=== PATIENT | female | born 1975 | race Caucasian/White ===

== ENCOUNTER 2021-10-14 16:33 | Observation (INO) | payer BC, SELFPAY ==
[2021-10-05 10:54] VITALS: BMI 54.5
--- NOTE | 2021-10-05 11:14 | PC.NURSE ---
Report to the Outpatient Waiting Room, entrance under the green pavilion located off [facility], at time 1000 on date 10/12/21. OR Time: 1200. - You and your visitor will be asked a series of questions to screen for COVID 19 for your protection. - Only one visitor is allowed at this time. - The patient visitor is requested to leave or wait in car when not with patient. - A mask is required within the hospital. Patients may have clear liquids (water, carbonated beverages, clear teas, apple juice) until 3 hours prior to surgery with a maximum of 20 ounces. - No food from midnight until time of surgery Take the following medications with a SIP of water the morning of surgery: LEXAPRO, SYNTHROID Medications to discontinue per physician: N/A Date to take last dose: N/A Please no make-up, nail moldovan, hairspray, perfume, deodorant, or body powder the day of surgery. No jewelry (including any body piercings) or valuables the day of surgery, leave them at home. Please take a shower or bath the night before, or the morning of, surgery with an antibacterial soap. Wear comfortable, loose fitting clothing. - Jewelry must be removed prior to entering the operating room. Rings and piercings that are not removed may be cut off. - The hospital will not accept responsibility for valuables. - Please leave all valuables, including medications, at home the day of surgery. If you are going home after surgery, a licensed show horse driver must drive you home. - NO public transportation without another adult. - We recommend that an adult stay with you for 24 hours following discharge. - We also recommend that you do not drive, make important decision, drink alcoholic beverages, or take any drugs that were not prescribed by your health care provider for at least 24 hours after your discharge time. Follow any additional instructions given to you from your surgeon. If you or anyone in your household have experienced Covid symptoms in the past week, please notify your surgeon or the nurse liaison at the phone number below for possible testing. Telephone instructions given to PT - BONG BEASLEY and asked if any additional questions and then verbalized understanding. Patient advised to call surgeon office or pre surgery nurse liaison [phone] if any additional questions.
[2021-10-12] VITALS (18 sets, daily range): BP systolic 110–151; BP diastolic 55–113; PULSE 99–120; RESP 10–22; TEMP 36.1–37; O2SAT 95–100
[2021-10-12] MEDS: LACTATED RINGERS 1,000 ML 30 ML IV CONT ×3 (06:50→12:50)
[2021-10-12] MEDS: SCOPOLAMINE 1.5 MG PATCH TRANSDERM (06:58)
--- NOTE | 2021-10-12 06:59 | WPDANESEPPF ---
Anes - Initial Pre Proc Eval Procedure: Operation Date: 10/12/21 07:30 Proposed Procedures p L5-S1 Posterior Lumbar Interbody Fusion - Agustin Goldman MD Date/Time: 10/12/21 06:59 Surgeon: Agustin Goldman MD Pre Op Diagnosis: Lum Disc Herniation, Lum Radiculopathy Patient Data Age: 46 Gender: F Height: 1.5 m Weight: 122.47 kg Allergies Allergy/AdvReac Type Severity Reaction Status Date / Time amoxicillin Allergy Intermediate Hives Verified 10/12/21 06:05 clindamycin Allergy Intermediate Hives Verified 10/12/21 06:05 erythromycin base Allergy Intermediate Hives Verified 10/12/21 06:05 Penicillins Allergy Intermediate Hives Verified 10/12/21 06:05 Home Medications Medication Instructions Recorded Confirmed Type diphenhydramine HCl 25 mg capsule 25 mg PO HS 10/05/21 10/12/21 History (Benadryl) escitalopram oxalate 20 mg tablet 30 mg PO DAILY 10/05/21 10/12/21 History (Lexapro) levothyroxine 175 mcg tablet 175 mcg PO DAILY 10/05/21 10/12/21 History (Synthroid) pantoprazole 40 mg tablet,delayed 40 mg PO BID 10/05/21 10/12/21 History release (Protonix) pravastatin 40 mg tablet 40 mg PO HS 10/05/21 10/12/21 History tramadol 50 mg tablet 25 mg PO HS 10/05/21 10/12/21 History Patient hx anesthesia problems: post op nausea/vomiting Family hx anesthesia problems: post op nausea/vomiting Results Review: All pre-operative results and documents have been reviewed as part of the pre-operative evaluation. [facility] Past Medical History Medical History Asthma Fibromyalgia Hyperlipidemia Social History Social History Smoking packs per day: 0.75 Smoking cigarettes per day: 15.0 Years smoked: 30 Smoking pack-years: 22.50 Smoking status: Current every day smoker Tobacco type: cigarettes Alcohol intake: never Substance use: never Substance use type: does not use Living arrangements: with family Spiritual care concerns: No Anes - Eval Final PreProcedure Day of Procedure 10/12/21 06:59 Patient weight: super morbidly obese Heart: regular rate and rhythm Lungs: decreased breath sounds Airway: Mallampati scale class II Neurological: alert and oriented Last oral intake: >/= 8 hours ASA classification: III Emergent: no Anesthetic plan: proceed Anesthesia type and monitoring: general ETT and standard monitoring Results Review: All pre-operative results and documents have been reviewed as part of the pre-operative evaluation. Informed Consent: The patient's anesthetic plan and its attendant risks and benefits were discussed with the patient/family/POA. Questions were solicited and answers provided to the satisfaction of the patient/family/POA.
--- NOTE | 2021-10-12 07:50 | PM.IMHP ---
H&P: HPI History of Present Illness Date/Time: 10/12/21 07:50 Chief Complaint: Back and leg pain Narrative: Sultana is a 38-year-old female with back and leg pain related to the pathology at the L5-S1 level presents for posterior lumbar interbody fusion. She has not changed appreciably since we last saw her. She does not have specific muscle group weakness or dermatomal numbness. She is not having bowel or bladder difficulty. Review of Systems Review of Systems: No weakness or numbness. Patient denies shortness of breath cough fever chills nausea vomiting weight loss weight gain or chest pain. She has back and leg pain and stiffness. She is otherwise negative on systems PMFSH Past Medical History Medical History Asthma Fibromyalgia Hyperlipidemia Social History Social History Smoking packs per day: 0.75 Smoking cigarettes per day: 15.0 Years smoked: 30 Smoking pack-years: 22.50 Smoking status: Current every day smoker Tobacco type: cigarettes Alcohol intake: never Substance use: never Substance use type: does not use Living arrangements: with family Spiritual care concerns: No Meds Home Medications and Allergies Home Medications Medication Instructions Recorded Confirmed Type diphenhydramine HCl 25 mg capsule 25 mg PO HS 10/05/21 10/12/21 History (Benadryl) escitalopram oxalate 20 mg tablet 30 mg PO DAILY 10/05/21 10/12/21 History (Lexapro) levothyroxine 175 mcg tablet 175 mcg PO DAILY 10/05/21 10/12/21 History (Synthroid) pantoprazole 40 mg tablet,delayed 40 mg PO BID 10/05/21 10/12/21 History release (Protonix) pravastatin 40 mg tablet 40 mg PO HS 10/05/21 10/12/21 History tramadol 50 mg tablet 25 mg PO HS 10/05/21 10/12/21 History Allergies Allergy/AdvReac Type Severity Reaction Status Date / Time amoxicillin Allergy Intermediate Hives Verified 10/12/21 06:05 clindamycin Allergy Intermediate Hives Verified 10/12/21 06:05 erythromycin base Allergy Intermediate Hives Verified 10/12/21 06:05 Penicillins Allergy Intermediate Hives Verified 10/12/21 06:05 Vital Signs Vital Signs - 24 hr 10/12/21 06:06 Temperature 98.1 F Pulse Rate 106 H Respiratory Rate 20 Blood Pressure 144/93 H Pulse Oximetry 97 Oxygen Delivery Room Air Exam Neuro: Other: Patient is a normal-appearing, normally developed female who is obese. She is awake, alert, oriented x3 with good fund of knowledge, recall events and fluent speech. Her face is symmetrical, tongue is midline. Her extraocular movements are intact. Strength is normal in bilateral lower extremities to direct confrontation. Sensation is intact to light touch lower extremities Regular rate and rhythm Clear to auscultation Assessment and Plan Assessment and plan (1) Lumbar spondylosis: Code(s): M47.816 - Spondylosis without myelopathy or radiculopathy, lumbar region Status: Acute (2) Spondylolisthesis, lumbar region: Code(s): M43.16 - Spondylolisthesis, lumbar region Status: Acute Plan Sultana is a 46-year-old female who presents for L5-S1 posterior lumbar interbody fusion. I described to her again that operation, its risks, potential benefits, the operative and postoperative course in detail and answered all of her questions personally. She indicates understanding and elects to proceed with that operation.
--- NOTE | 2021-10-12 07:54 | WPDHPUPDATE1 ---
History and Physical Update Update Date/Time: 10/12/21 07:54 History and Physical has been reviewed, including an updated exam of the patient. There are NO changes in the patient's condition. Risks, benefits, and alternatives have been discussed and questions answered. Patient agrees to proceed with procedure.
[2021-10-12] MEDS: ceFAZolin 3 GM/D5W 100 ML 100 ML IVPB (08:06)
[2021-10-12] MEDS: LIDO 1%/EPINEPHRINE 1:100,000 50 ML VIAL 10 ML INFILTRATE (08:43)
--- NOTE | 2021-10-12 10:30 | W.PM.PROC2 ---
Procedure Note - Detailed Date of Procedure 10/12/21 Pre-op Diagnosis Lum Disc Herniation, Lum Radiculopathy Post-op Diagnosis Same Procedure Performed L5-S1 complete laminectomy and bilateral facetectomy, L5-S1 complete diskectomy and interbody arthrodesis utilizing local autograft bone, L5-S1 pedicle screw instrumentation Surgeon Agustin Goldman MD Air Conditioning Insulation Installer Jaya Fishre General Indications Sultana is a 46-year-old female with back and leg pain related to spondylosis and foraminal stenosis who presents for decompression and fusion from a posterior approach. Findings Spondylosis, foraminal stenosis Description of Procedure Sultana was brought to the operating room in the supine position, was sedated, intubated and placed under general anesthesia in routine fashion. She was then turned into the prone position on a Héctor frame. The area of operation on her back was examined, marked for incision, prepped and draped in routine sterile fashion. Incision was marked over the L5 and S1 spinous processes in the midline. This area was injected with 0.5% lidocaine with [id number] epinephrine. Intravenous antibiotics given prior to incision. Incision was made with a 10 blade scalpel down to the lumbodorsal fascia. A subperiosteal dissection of the muscle and soft tissue away from spinous process and lamina at L5 and S1 was performed with a subperiosteal elevator and Bovie cautery. A verifying x-rays obtained to verify the level of operation. The L5 spinous process was removed with a Mine rongeur. Kerrison punches curved curette a Asterell rongeur used to remove lamina in the midline and to the soft contents of the canal were encountered. A Midas Ren drill was used to resect the pars bilaterally at L5. The inferior articular process facet of L5 could not be removed bilaterally. These and the spinous processes were stripped free of soft tissue and morselized later use as interbody autograft. Kerrison punches and curved curettes were used to define a plane with the dura and removed bone and ligament flush with the pedicle and through the L5-S1 foramina widely decompressing the exiting nerve roots. With the thecal sac retracted and protected the disc space was entered bilaterally using an 11 blade scalpel. Scrapers various sizes curettes of various configurations a pituitary rongeur and a rasp were used to remove as much cartilaginous endplate disc material as possible stent to bleeding cortical 5 surfaces on the opposing bones. The disc spaces were then sized a 9 mm interbody devices were chosen. These were titanium CoreLink interbody devices. These were filled with local autograft bone. The disc space was likewise filled with local autograft bone medially and anteriorly. The interbody devices were then placed with 2-3 mm countersink within the disc space bilaterally. Pedicle screw instrumentation was then performed by observing and palpating the pedicle wall a hole was made superior articular process above the pedicle using a Midas Ren drill. Pedicle was then cannulated with a pedicle probe, checked for continuity with the ball probe, tapped with a 5.5 mm tap and a 6.5 x 50 mm screw was placed eeg L5 pedicle a 6.5 x 45 mm screws placed into each S1 pedicle. Rods were placed in the screw heads on either side and secured in position using caps for that purpose. These were then definitively tightened with the torque and anti torque device. A verifying x-ray was obtained to verify the level of operation and good position of the instrumentation which was confirmed. A medium Hemovac drain was left in the subfascial position and carried out to the inferior and right of the incision. The wound was copiously irrigated with bacitracin irrigation all bleeding stopped with bipolar cautery. The wound was then closed in layered fashion with 2-0 Vicryl interrupted sutures in the lumbodorsal fascia and Shelly's layer. 3-0 Vicryl buried interrupted sutures were p
--- NOTE | 2021-10-12 11:08 | PM.IMHP ---
H&P: HPI History of Present Illness Date/Time: 10/12/21 11:08 Chief Complaint: Back and leg pain Narrative: Sultana is a 38-year-old female [facility] Past Medical History Medical History Asthma Fibromyalgia Hyperlipidemia Social History Social History Smoking packs per day: 0.75 Smoking cigarettes per day: 15.0 Years smoked: 30 Smoking pack-years: 22.50 Smoking status: Current every day smoker Tobacco type: cigarettes Alcohol intake: never Substance use: never Substance use type: does not use Living arrangements: with family Spiritual care concerns: No Meds Home Medications and Allergies Home Medications Medication Instructions Recorded Confirmed Type diphenhydramine HCl 25 mg capsule 25 mg PO HS 10/05/21 10/12/21 History (Benadryl) escitalopram oxalate 20 mg tablet 30 mg PO DAILY 10/05/21 10/12/21 History (Lexapro) levothyroxine 175 mcg tablet 175 mcg PO DAILY 10/05/21 10/12/21 History (Synthroid) pantoprazole 40 mg tablet,delayed 40 mg PO BID 10/05/21 10/12/21 History release (Protonix) pravastatin 40 mg tablet 40 mg PO HS 10/05/21 10/12/21 History tramadol 50 mg tablet 25 mg PO HS 10/05/21 10/12/21 History Allergies Allergy/AdvReac Type Severity Reaction Status Date / Time amoxicillin Allergy Intermediate Hives Verified 10/12/21 06:05 clindamycin Allergy Intermediate Hives Verified 10/12/21 06:05 erythromycin base Allergy Intermediate Hives Verified 10/12/21 06:05 Penicillins Allergy Intermediate Hives Verified 10/12/21 06:05 Vital Signs Vital Signs - 24 hr 10/12/21 06:06 10/12/21 10:50 Temperature 98.1 F 98.6 F Pulse Rate 106 H 120 H Respiratory Rate 20 22 H Blood Pressure 144/93 H 151/74 H Pulse Oximetry 97 98 Oxygen Delivery Room Air Simple Face Mask Oxygen Flow Rate 6
[2021-10-12] MEDS: fentaNYL CITRATE INJ (*CRX) 100 MCG/2 ML VIAL 25 MCG IV PUSH ×7 (11:18→11:47)
[2021-10-12] MEDS: HYDROmorphone HCL INJ (*CRX) 1 MG/ML SYR IV PUSH (12:44)
--- NOTE | 2021-10-12 13:23 | PC.NURSE ---
This patient, Sultana Lezama, was admitted to 2 Medical Room 257-01. Patient/family oriented to hospital policies and general routines including ID bracelet, bed and alarms, visiting hours, pain management, procedures, bathroom and other care routines, personal items, smoking policy, room service/diet, and visiting hours. Information on how to activate the Rapid Response Team has been discussed. Patient/Family are encouraged to report perceived risks to care and to ask questions if they do not understand what they are told or what they should do.
[2021-10-12] MEDS: HYDROcodone/acetaminophen (*CRX) 10-325 MG TABLET 1 TAB PO (13:45)
[2021-10-12] MEDS: KCL 20 MEQ/D5/0.45% SOD CHL 1,000 ML 100 ML IV CONT (13:50)
[2021-10-12] MEDS: HYDROmorphone HCL INJ (*CRX) 1 MG/ML SYR 0.5 MG IV PUSH ×2 (15:50→20:08)
[2021-10-12] MEDS: DOCUSATE SODIUM 100 MG CAPSULE PO (20:08)
[2021-10-12] MEDS: PRAVASTATIN SODIUM 20 MG TABLET 40 MG PO (20:08)
[2021-10-12] MEDS: diphenhydrAMINE HCl CAP 25 MG CAPSULE PO (20:08)
[2021-10-12] MEDS: PANTOPRAZOLE 40 MG TABLET PO (20:08)
[2021-10-12] MEDS: HYDROcodone/acetaminophen (*CRX) 5-325 MG TABLET 1 TAB PO (22:29)
[2021-10-13 03:05] VITALS: BP 127/86; PULSE 95; RESP 16; TEMP 36.2; O2SAT 95
[2021-10-13] MEDS: HYDROcodone/acetaminophen (*CRX) 5-325 MG TABLET 1 TAB PO (04:44)
[2021-10-13] MEDS: KCL 20 MEQ/D5/0.45% SOD CHL 1,000 ML 100 ML IV CONT (04:45)
[2021-10-13] MEDS: LEVOTHYROXINE SODIUM 100 MCG TABLET PO (06:03)
[2021-10-13] MEDS: LEVOTHYROXINE SODIUM 75 MCG TABLET PO (06:03)
[2021-10-13 08:03] VITALS: BP 141/78; PULSE 106; RESP 16; TEMP 36.6; O2SAT 99
--- NOTE | 2021-10-13 08:47 | PCPTNOTE ---
Attempted to see patient for PT at this time, however patient was eating breakfast.
[2021-10-13] MEDS: PANTOPRAZOLE 40 MG TABLET PO ×2 (08:56→20:52)
[2021-10-13] MEDS: DOCUSATE SODIUM 100 MG CAPSULE PO ×2 (08:56→20:52)
[2021-10-13] MEDS: ESCITALOPRAM OXALATE 10 MG TABLET 30 MG PO (08:56)
[2021-10-13] MEDS: HYDROcodone/acetaminophen (*CRX) 10-325 MG TABLET 1 TAB PO ×3 (10:23→20:51)
[2021-10-13] MEDS: HYDROmorphone HCL INJ (*CRX) 1 MG/ML SYR 0.5 MG IV PUSH (12:30)
[2021-10-13 14:09] VITALS: BP 138/80; PULSE 111; RESP 16; TEMP 36.6; O2SAT 99
--- NOTE | 2021-10-13 15:24 | WPDANESPN ---
Anes - Prog Note Post-Op Date/Time: 10/13/21 15:24 Cardiovascular status: normal Respiratory status: normal Airway patency: baseline Mental status: baseline Post-Op hydration status: normal Vital Signs: Last Vital Signs Temp 36.6 C 10/13/21 14:09 Pulse 111 H 10/13/21 14:09 Resp 16 10/13/21 14:09 BP 138/80 10/13/21 14:09 Pulse Ox 99 10/13/21 14:09 O2 Del Method Room Air 10/12/21 20:20 O2 Flow Rate 2 10/12/21 12:55 Pain Score (VAS): 04/13 I/O: Intake & Output 10/12/21 10/13/21 10/13/21 23:59 07:59 15:59 Intake Total 1640 250 510 Output Total 620 1150 Balance 1020 -900 510 Post-procedural complaints: none Patient Feedback: Patient satisfied with anesthetic care.
[2021-10-13 15:43] VITALS: O2SAT 97
[2021-10-13 18:26] VITALS: BP 135/74; PULSE 98; RESP 16; TEMP 36.4; O2SAT 98
[2021-10-13 19:24] VITALS: BP 142/84; PULSE 99; RESP 16; TEMP 36.9; O2SAT 98
--- NOTE | 2021-10-13 20:04 | WPDPN ---
Progress Note: A&P Assessment and Plan (1) Spondylolisthesis, lumbar region: Code(s): M43.16 - Spondylolisthesis, lumbar region Status: Acute (2) Lumbar spondylosis: Code(s): M47.816 - Spondylosis without myelopathy or radiculopathy, lumbar region Status: Acute Plan Sultana is doing well postop day 1 status post L5-S1 posterior lumbar interbody fusion. She will continue to work with physical and occupational therapy towards discharge. She will lead to be making transfers independently and walking without assistance prior to discharge. She will also need to wean from the IV pain medication. This could be tomorr or Saturday. Subjective Date/time seen: 10/13/21 20:05 Sultana is postop day 1 status post L5-S1 posterior lumbar interbody fusion. She is doing well. She enjoyed out of bed activity today with some activity-related discomfort. The medication seems to be helping her. She does not report any new symptoms of her lower extremities. She is not having bowel or bladder difficulties. Exam Narrative: Strength is 5/5 in all muscle groups of the bilateral lower extremities. Sensation is intact to light touch throughout the lower extremities. Dressing is clean, dry and intact. Drain is in place. Objective Data Vital Signs Vital Signs: Vital Signs - 24 hr 10/12/21 20:20 10/12/21 22:27 10/13/21 03:05 Temperature 97.4 F L 97.2 F L Pulse Rate 106 H 95 Respiratory Rate 16 16 Blood Pressure 143/86 H 127/86 Pulse Oximetry 96 95 Oxygen Delivery Room Air 10/13/21 08:03 10/13/21 14:09 10/13/21 15:43 Temperature 97.9 F 98 F Pulse Rate 106 H 111 H Respiratory Rate 16 16 Blood Pressure 141/78 H 138/80 Pulse Oximetry 99 99 97 Oxygen Delivery Room Air 10/13/21 18:26 10/13/21 19:24 Temperature 97.5 F L 98.5 F Pulse Rate 98 99 Respiratory Rate 16 16 Blood Pressure 135/74 142/84 H Pulse Oximetry 98 98 Oxygen Delivery Intake/Output Intake/Output: Intake & Output 10/10/21 10/11/21 10/12/21 10/13/21 23:59 23:59 23:59 23:59 Intake Total 4340 1280 Output Total 620 1800 Balance 3720 -520 Meds/Results Medications: Active Medications Generic Name Dose Route Start Last Admin Trade Name Freq PRN Reason Stop Dose Admin Hydrocodone Bitart/Acetaminophen 1 tab 10/12/21 13:03 10/13/21 04:44 Hydrocodone/Acetaminophen (*Crx) 5-325 Mg Tablet PO 1 tab Q4H PRN Administration Mild Pain (1-3) Hydrocodone Bitart/Acetaminophen 1 tab 10/12/21 13:03 10/13/21 16:33 Hydrocodone/Acetaminophen (*Crx) 10-325 Mg Tablet PO 1 tab Q4H PRN Administration Moderate Pain (4-6) Al Hydrox/Mg Hydrox/Simethicone 20 ml 10/12/21 13:03 Mag Hydrox/Al Hydrox/Simeth 30 Ml Udc PO Q4H PRN Indigestion/Heartburn Bisacodyl 10 mg 10/12/21 13:03 Bisacodyl 10 Mg Suppository RECTAL DAILY PRN Constipation Cyclobenzaprine HCl 10 mg 10/12/21 13:03 Cyclobenzaprine Hcl 10 Mg Tablet PO TID PRN Muscle Spasms Diphenhydramine HCl 25 mg 10/12/21 21:00 10/12/21 20:08 Diphenhydramine Hcl Cap 25 Mg Capsule PO 25 mg HS NONA Administration Docusate Sodium 100 mg 10/12/21 21:00 10/13/21 08:56 Docusate Sodium 100 Mg Capsule PO 100 mg Q12HR NONA Administration Escitalopram Oxalate 30 mg 10/13/21 09:00 10/13/21 08:56 Escitalopram Oxalate 10 Mg Tablet PO 30 mg DAILY NONA Administration Hydromorphone HCl 0.5 mg 10/12/21 13:03 10/13/21 12:30 Hydromorphone Hcl Inj (*Crx) 1 Mg/Ml Syr IV PUSH 0.5 mg Q2H PRN Administration Breakthrough Pain Cefazolin Sodium 1 gm in 50 mls @ 100 mls/hr 10/12/21 15:00 10/13/21 15:06 Ancef 1 Gm/D5w 50 Ml Pm IVPB Infused Q8HR NONA Infusion Levothyroxine Sodium 100 mcg 10/13/21 06:30 10/13/21 06:03 Levothyroxine Sodium 100 Mcg Tablet PO 100 mcg DAILY@0630 NONA Administration Levothyroxine Sodium 75 mcg 10/13/21 06:30 10/13/21 06:03 Levot
[2021-10-13] MEDS: PRAVASTATIN SODIUM 20 MG TABLET 40 MG PO (20:52)
[2021-10-13] MEDS: diphenhydrAMINE HCl CAP 25 MG CAPSULE PO (20:52)
[2021-10-14] VITALS (7 sets, daily range): BP systolic 124–144; BP diastolic 64–92; PULSE 97–108; RESP 12–20; TEMP 36.1–37.3; O2SAT 96–100
--- NOTE | ~2021-10-14 | XR_ITS ---
XR fluoroscopy no charge DATE: 10/12/2021 10:18 INDICATION: Posterior lumbar interbody spinal fusion at L5-S1 TECHNIQUE: 2 spot C-arm lateral images of the lumbosacral area 13.0 seconds fluoroscopy time 12.61 mGy COMPARISON: None FINDINGS: Pedicle screws and yumi and interbody disc space devices are identified at L5-S1. IMPRESSION: Status post posterior and interbody surgical spinal fusion at L5-S1 Reviewed, dictated and finalized at [facility]. Reviewed, dictated and finalized at location [facility].
[2021-10-14] MEDS: HYDROcodone/acetaminophen (*CRX) 10-325 MG TABLET 1 TAB PO ×5 (02:07→18:54)
[2021-10-14] MEDS: LEVOTHYROXINE SODIUM 75 MCG TABLET PO (05:59)
[2021-10-14] MEDS: LEVOTHYROXINE SODIUM 100 MCG TABLET PO (05:59)
[2021-10-14] MEDS: ESCITALOPRAM OXALATE 10 MG TABLET 30 MG PO (08:57)
[2021-10-14] MEDS: PANTOPRAZOLE 40 MG TABLET PO ×2 (08:57→20:27)
[2021-10-14] MEDS: DOCUSATE SODIUM 100 MG CAPSULE PO ×2 (09:00→20:27)
[2021-10-14] MEDS: PRAVASTATIN SODIUM 20 MG TABLET 40 MG PO (20:25)
[2021-10-14] MEDS: diphenhydrAMINE HCl CAP 25 MG CAPSULE PO (20:25)
[2021-10-14] MEDS: CYCLOBENZAPRINE HCL 10 MG TABLET PO (20:25)
[2021-10-14] MEDS: HYDROcodone/acetaminophen (*CRX) 5-325 MG TABLET 1 TAB PO (21:28)
[2021-10-15] MEDS: HYDROcodone/acetaminophen (*CRX) 10-325 MG TABLET 1 TAB PO ×2 (02:53→09:06)
[2021-10-15 04:23] VITALS: BP 141/96; PULSE 110; RESP 16; TEMP 36.8; O2SAT 95
[2021-10-15] MEDS: LEVOTHYROXINE SODIUM 100 MCG TABLET PO (05:37)
[2021-10-15] MEDS: LEVOTHYROXINE SODIUM 75 MCG TABLET PO (05:40)
--- NOTE | 2021-10-15 06:28 | WPDPN ---
Progress Note: A&P Assessment and Plan (1) Lumbar spondylosis: Code(s): M47.816 - Spondylosis without myelopathy or radiculopathy, lumbar region Status: Acute Plan Mrs. Lezama is POD # 3 s/p L5-S1 Fusion. - pain controlled - Home today - Drain out ytd Subjective Date/time seen: 10/15/21 06:28 No acute events overnight.Pain controlled with oral meds. Exam Neuro: Other: Alert and oriented x 3 MOtor: full strength x 4 Incision: glue intact. no redness Objective Data Vital Signs Vital Signs: Vital Signs - 24 hr 10/14/21 09:19 10/14/21 09:00 10/14/21 13:35 Temperature 36.1 C L 36.3 C L Pulse Rate 97 101 H Respiratory Rate 16 16 Blood Pressure 130/69 131/77 Pulse Oximetry 97 100 Oxygen Delivery Room Air 10/14/21 17:28 10/14/21 19:46 10/14/21 20:00 Temperature 36.1 C L 37.3 C Pulse Rate 108 H 99 Respiratory Rate 16 16 Blood Pressure 144/70 H 133/75 Pulse Oximetry 100 100 Oxygen Delivery Room Air 10/14/21 23:57 10/15/21 04:23 Temperature 36.6 C 36.8 C Pulse Rate 104 H 110 H Respiratory Rate 12 16 Blood Pressure 124/64 141/96 H Pulse Oximetry 99 95 Oxygen Delivery Intake/Output Intake/Output: Intake & Output 10/12/21 10/13/21 10/14/21 10/15/21 23:59 23:59 23:59 23:59 Intake Total 4340 1330 1350 50 Output Total 620 1800 750 Balance 3720 -470 600 50 Meds/Results Medications: Active Medications Generic Name Dose Route Start Last Admin Trade Name Freq PRN Reason Stop Dose Admin Hydrocodone Bitart/Acetaminophen 1 tab 10/12/21 13:03 10/14/21 21:28 Hydrocodone/Acetaminophen (*Crx) 5-325 Mg Tablet PO 1 tab Q4H PRN Administration Mild Pain (1-3) Hydrocodone Bitart/Acetaminophen 1 tab 10/12/21 13:03 10/15/21 02:53 Hydrocodone/Acetaminophen (*Crx) 10-325 Mg Tablet PO 1 tab Q4H PRN Administration Moderate Pain (4-6) Al Hydrox/Mg Hydrox/Simethicone 20 ml 10/12/21 13:03 Mag Hydrox/Al Hydrox/Simeth 30 Ml Udc PO Q4H PRN Indigestion/Heartburn Bisacodyl 10 mg 10/12/21 13:03 Bisacodyl 10 Mg Suppository RECTAL DAILY PRN Constipation Cyclobenzaprine HCl 10 mg 10/12/21 13:03 10/14/21 20:25 Cyclobenzaprine Hcl 10 Mg Tablet PO 10 mg TID PRN Administration Muscle Spasms Diphenhydramine HCl 25 mg 10/12/21 21:00 10/14/21 20:25 Diphenhydramine Hcl Cap 25 Mg Capsule PO 25 mg HS NONA Administration Docusate Sodium 100 mg 10/12/21 21:00 10/14/21 20:27 Docusate Sodium 100 Mg Capsule PO 100 mg Q12HR NONA Administration Escitalopram Oxalate 30 mg 10/13/21 09:00 10/14/21 08:57 Escitalopram Oxalate 10 Mg Tablet PO 30 mg DAILY NONA Administration Cefazolin Sodium 1 gm in 50 mls @ 100 mls/hr 10/12/21 15:00 10/15/21 06:07 Ancef 1 Gm/D5w 50 Ml Pm IVPB Infused Q8HR NONA Infusion Levothyroxine Sodium 100 mcg 10/13/21 06:30 10/15/21 05:37 Levothyroxine Sodium 100 Mcg Tablet PO 100 mcg DAILY@0630 NONA Administration Levothyroxine Sodium 75 mcg 10/13/21 06:30 10/15/21 05:40 Levothyroxine Sodium 75 Mcg Tablet PO 75 mcg DAILY@0630 NONA Administration Ondansetron HCl 4 mg 10/12/21 13:03 Ondansetron Inj 4 Mg/2 Ml Vial IV PUSH Q8H PRN Nausea And Vomiting Pantoprazole Sodium 40 mg 10/12/21 21:00 10/14/21 20:27 Pantoprazole 40 Mg Tablet PO 40 mg Q12HR NONA Administration Pravastatin Sodium 40 mg 10/12/21 21:00 10/14/21 20:25 Pravastatin Sodium 20 Mg Tablet PO 40 mg HS NONA Administration Senna/Docusate Sodium 1 tab 10/12/21 13:03 Senna/Docusate Sodium Tablet PO HS PRN Constipation Radiology Results: ITS Impressions Fluoroscopy 10/12/21 11:53 IMPRESSION: Status post posterior and interbody surgical spinal fusion at L5-S1
--- NOTE | 2021-10-15 08:47 | PCOTNOTE ---
Attempted to see pt for Occupational Therapy tx this AM. Pt declined to participate in any therapeutic activities/UE strengthening exercises. Pt states that she slept poorly last night due to increase pain. Pt reports she completed her self care tasks prior to therapy this morning with no issues. Due to upcoming d/c today, pt has no questions/concerns at this time. Will continue per poc duration/frequency tomorrow.
[2021-10-15 08:54] VITALS: PULSE 102; O2SAT 99
[2021-10-15] MEDS: DOCUSATE SODIUM 100 MG CAPSULE PO (09:06)
[2021-10-15] MEDS: ESCITALOPRAM OXALATE 10 MG TABLET 30 MG PO (09:06)
[2021-10-15] MEDS: PANTOPRAZOLE 40 MG TABLET PO (09:06)
--- NOTE | 2021-10-15 09:35 | PCPTNOTE ---
Attempted Physical Therapy treatment, however patient declined at this time stating she is leaving today and would rather not do therapy prior. Patient reports no questions or concerns at this time regarding therapy.
[2021-10-15] MEDS: CYCLOBENZAPRINE HCL 10 MG TABLET PO (11:08)
--- NOTE | 2021-11-17 15:23 | PM.DS ---
DS: Admitting Diagnosis Discharge Date 10/15/21 Admitting Diagnosis lumbar spondylosis DS: Discharge Diagnosis Discharge Diagnosis (1) Lumbar spondylosis: Code(s): M47.816 - Spondylosis without myelopathy or radiculopathy, lumbar region Status: Acute DS: Summary Hospital Course Reason for hospitalization: The patient was admitted to the hospital for an elective L5-S1 fusion. She did well after surgery and was stable for discharge to home on postoperative day 3 Hospital Course: patient tolerated surgery well. She mobilized over the next 48-72 hours and was stable for discharge home on postoperative day 3 Status at Discharge Cognitive/behavioral status at discharge: stable Time Spent with Patient Time attestation: Total time spent providing and/or coordinating discharge services: 15 minutes Discharge Plan Discharge Attending physician on discharge: Agustin Goldman Consulting providers: Skyler Goyal Discharging Clinician: Dontae Jacobs Anticipated Discharge Date/Time: 10/15/21 06:30 Patient Disposition: Home, Self-Care Activity: may shower Diet: regular Wound Care Instructions: incision open to air Discharge Instructions: Do not submerge wound in water. Ok for shower Patient Instructions: Antibiotic Form Stand Alone Forms: General Discharge Information Follow-up/Referrals: Agustin Goldman MD [Physician] - 6 Weeks (office will contact you for appointment) Discharge Medications: New cyclobenzaprine 10 mg Tablet 10 mg PO TID PRN (Reason: Muscle Spasms) Qty: 60 0RF hydrocodone-acetaminophen 5-325 mg Tablet 1 tablet PO Q4H PRN (Reason: Mild Pain (1-3)) Qty: 45 0RF Continued levothyroxine [Synthroid] 175 mcg Tablet 175 mcg PO DAILY pravastatin 40 mg Tablet 40 mg PO HS pantoprazole [Protonix] 40 mg Tablet,Delayed Release (Dr/Ec) 40 mg PO BID diphenhydramine HCl [Benadryl] 25 mg Capsule 25 mg PO HS escitalopram oxalate [Lexapro] 20 mg Tablet 30 mg PO DAILY tramadol 50 mg tablet 25 mg PO HS Date of admission: 10/14/21 16:33 Primary Care Provider: PHYSICIAN NOT ON STAFF,NONSTAFF Admitting Provider: Agustin Goldman Attending physician on admission: Dontae Jacobs Condition: Stable
== END 2021-10-15 11:30 | disposition home or self-care (01) ==
LOC: ANHSURGERY 16:39 → ANH2MED 10-15 06:39
PROVIDERS: Admitting Provider Neurological Surgery; Visit Provider Neurological Surgery
PROC: (CPT 22612; principal; 2021-10-12 07:30)
DX: M47.27 Other spondylosis with radiculopathy, lumbosacral region (principal); M48.07 Spinal stenosis, lumbosacral region; J45.909 Unspecified asthma, uncomplicated; M79.7 Fibromyalgia; E66.01 Morbid (severe) obesity due to excess calories; Z68.43 Body mass index [BMI] 50.0-59.9, adult; E78.5 Hyperlipidemia, unspecified; F17.210 Nicotine dependence, cigarettes, uncomplicated; Z79.891 Long term (current) use of opiate analgesic; Z79.899 Other long term (current) drug therapy
CPT/HCPCS: 22630; 22840; 20936; 36415; 86850; 86900; 86901; 97110; 97161; 97165; 97530; 97535; 99199; A9270; G0378; J0131; J0690; J1100; J1170; J2250; J2405; J2704; J2710; J3010; J3370; J3480; J7120